=== PATIENT | male | born 2000 | race Caucasian/White ===

== ENCOUNTER 2019-01-25 13:05 | Day surgery (SDC) | payer OTHER ==
[~2019-01-25 13:05] MED LIST: CEFAZOLIN SODIUM 2 GM in DEXTROSE 5%-WATER 100 ML IV PRN; DEXAMETHASONE SOD PHOSPHATE INJ 4 MG/1 ML VIAL ONE; KETOROLAC TROMETHAMINE 60 MG/2 ML SDV ONE; LIDOCAINE 2% INJ-PF (20 MG/ML) 2 ML AMPUL ONE; METOCLOPRAMIDE HCL INJ/PF 10 MG/2 ML SDV ONE; ONDANSETRON HCL INJ/PF 4 MG/2 ML SDV ONE; SUCCINYLCHOLINE CHLORIDE INJ 200 MG/10 ML VIAL ONE
[2019-01-25] MEDS ORDERED: ONDANSETRON HCL INJ/PF 4 MG/2 ML SDV ONE (13:46)
[2019-01-25] MEDS ORDERED: FENTANYL CITRATE INJ/PF 100 MCG/2 ML AMPUL ONE (13:46)
[2019-01-25] MEDS ORDERED: DEXAMETHASONE SOD PHOSPHATE INJ 4 MG/1 ML VIAL ONE (13:46)
[2019-01-25] MEDS ORDERED: MORPHINE SULFATE 10 MG/ML INJ ONE (13:46)
[2019-01-25] MEDS ORDERED: MIDAZOLAM 2 MG/2 ML INJ ONE ×2 (13:46→18:14)
[2019-01-25] MEDS ORDERED: PROPOFOL INJ 200 MG/20 ML VIAL IV ONE ×2 (13:47→18:14)
[2019-01-25] MEDS ORDERED: BUPIVACAINE HCL 0.25 % INJ/PF (2.5 MG/1 ML) 30 ML VIAL ONE (13:52)
[2019-01-25] MEDS ORDERED: CEFAZOLIN 1 GM/D5W RTU 1 GM/50 ML RTUPB IV ONE (14:09)
[2019-01-25] MEDS ORDERED: LIDOCAINE 2% INJ (20 MG/ML) 20 ML MDV ONE (16:25)
[2019-01-25] MEDS ORDERED: ROPIVACAINE HCL 0.5% INJ/PF (5 MG/1 ML) 30 ML SDV ONE (16:25)
[2019-01-25] MEDS ORDERED: LIDOCAINE 2%/EPINEPHRINE INJ 20 ML VIAL ONE (16:25)
[2019-01-25] MEDS ORDERED: DEXMEDETOMIDINE INJ 80 MCG/20 ML VIAL IV ONE (18:14)
[2019-01-25] MEDS ORDERED: FENTANYL CITRATE INJ/PF 250 MCG/5 ML AMPULE ONE (18:14)
[2019-01-25] MEDS ORDERED: FENTANYL CITRATE INJ/PF 100 MCG/2 ML AMPUL IV PRN ×3 (20:27)
[2019-01-25] MEDS ORDERED: DIPHENHYDRAMINE HCL 50 MG/ML VIAL IV PRN (20:27)
[2019-01-25] MEDS ORDERED: MEPERIDINE HCL/PF INJ 25 MG/1 ML DISP.SYRIN IV PRN (20:27)
[2019-01-25] MEDS ORDERED: ONDANSETRON HCL INJ/PF 4 MG/2 ML SDV IV PRN (20:27)
[2019-01-25] MEDS ORDERED: PROMETHAZINE HCL INJ 25 MG/1 ML VIAL IV PRN ×2 (20:27)
--- NOTE | 2019-01-25 21:05 | OPERATIVE REPORT E ---
Operative Report NAME: RACHEL FLORES : 2000 AGE: 18Y DATE OF SURGERY: 01/25/2019 PREOPERATIVE DIAGNOSIS: LEFT 3-PART INTRAARTICULAR DISTAL RADIUS FRACTURE. POSTOPERATIVE DIAGNOSIS: LEFT 3-PART INTRAARTICULAR DISTAL RADIUS FRACTURE. OPERATIONS: 1. Open reduction internal fixation, left 3-part intraarticular distal radius fracture. 2. Brachial radialis tendon lengthening. SURGEON: GOGO MERAZ M.D. ANESTHESIA: General. ESTIMATED BLOOD LOSS: Minimal. COMPLICATIONS: None. IMPLANTS: Arthrex distal radius set. INDICATIONS FOR PROCEDURE: The patient is a 18-year-old young man who sustained a fall while skateboarding, resulting in a comminuted intraarticular fracture of the left distal radius. PROCEDURE: Following induction of general anesthetic and administration of antibiotics, patient was positioned supine on the operating room table. Bony prominences were padded. Tourniquet was placed on proximal left arm but not inflated. Left upper extremity sterilely prepped and draped in standard fashion. The arm was exsanguinated and tourniquet inflated to 100 mmHg. Extended FCR approach to distal radius was performed sharply through skin. Blunt dissection of subcutaneous tissue. Care was taken to identify and protect the radial artery. The FCR tendon sheath was then opened volarly and dorsally. Space of Parona opened bluntly. Pronator quadratus taken off the radius in an L-shaped flap. Fracture lines were identified and teased back into position. Clamps were placed, compressing the fracture lines. In particular, the most ulnar corner was clamped and reduced anatomically. Plate was applied volarly through its gliding hole. Position was checked through image intensification. Multiple unicortical locking screws were placed distally. Position was checked under image intensification. Two additional locking screws were placed in the shaft. Image intensification was brought in, which demonstrated anatomic reduction of the fracture and correct placement of implants. The wound was irrigated. The brachial radialis, which had been lengthened to reduce the radial styloid fragment, was repaired side to side in its lengthened position. The pronator quadratus was repaired back to itself using 2-0 Vicryl suture. Subcutaneous tissue was closed with 2-0 Vicryl and the skin was reapproximated with Monocryl suture. Then 0.25% Marcaine was injected for postoperative analgesia and a bulky dressing and volar splint were applied. The patient tolerated the procedure well, without complication, and was brought to the recovery room in stable condition. DICTATING PHYSICIAN: GOGO MERAZ M.D. [id number] Y#: [id number] 2041 ID: [id number] JOB#: [id number] ACCT: [id number] cc:GOGO MERAZ M.D. > MTDD
[2019-01-25 23:45] VITALS: BP 131/63
--- NOTE | 2019-01-26 10:47 | RADIOLOGY REPORT (SQ) ---
EXAM DESCRIPTION: WRIST LEFT 3 VIEWS; NO CHG FLUORO COMPLETED DATE/TIME: 01/25/2019 8:58 pm REASON FOR STUDY: ORIF LEFT WRIST S52.572A OTH INTARTIC FRACTURE OF LOWER END OF LEFT RADIUS, S52. 612A DISP FX OF LEFT ULNA STYLOID PROCESS, INIT FOR CLOS COMPARISON: None. FLUOROSCOPY TIME: 38 seconds. 3 images saved to PACS. TECHNIQUE: Intra-operative images acquired during surgical procedure to evaluate progress. NUMBER OF IMAGES: 3 images. LIMITATIONS: None. FINDINGS: Images acquired during hardware placement in the distal radius. IMPRESSION: IMAGE(S) OBTAINED DURING PROCEDURE. COMMENT: Quality ID 145: Final reports for procedures using fluoroscopy that document radiation exp osure indices, or exposure time and number of fluorographic images (if radiation exposure indices are not available) Please consult full operative report of the attending physician for description of the procedure. TECHNICAL DOCUMENTATION: JOB ID: [id number] [employer]- All Rights Reserved Reading location - IP/workstation name: [email or web address]
--- NOTE | 2019-01-26 10:47 | RADIOLOGY REPORT (SQ) ---
EXAM DESCRIPTION: WRIST LEFT 3 VIEWS; NO CHG FLUORO COMPLETED DATE/TIME: 01/25/2019 8:58 pm REASON FOR STUDY: ORIF LEFT WRIST S52.572A OTH INTARTIC FRACTURE OF LOWER END OF LEFT RADIUS, S52. 612A DISP FX OF LEFT ULNA STYLOID PROCESS, INIT FOR CLOS COMPARISON: None. FLUOROSCOPY TIME: 38 seconds. 3 images saved to PACS. TECHNIQUE: Intra-operative images acquired during surgical procedure to evaluate progress. NUMBER OF IMAGES: 3 images. LIMITATIONS: None. FINDINGS: Images acquired during hardware placement in the distal radius. IMPRESSION: IMAGE(S) OBTAINED DURING PROCEDURE. COMMENT: Quality ID 145: Final reports for procedures using fluoroscopy that document radiation exp osure indices, or exposure time and number of fluorographic images (if radiation exposure indices are not available) Please consult full operative report of the attending physician for description of the procedure. TECHNICAL DOCUMENTATION: JOB ID: [id number] [employer]- All Rights Reserved Reading location - IP/workstation name: [email or web address]
== END 2019-01-25 23:18 | disposition home or self-care (01) ==
LOC: OROUT 13:05
PROVIDERS: ATTEND Orthopaedic Surgery
DX: S52.572A Other intraarticular fracture of lower end of left radius, initial encounter for closed fracture (principal); S52.612A Displaced fracture of left ulna styloid process, initial encounter for closed fracture; V00.131A Fall from skateboard, initial encounter
CPT/HCPCS: 73110; 01830; 25609; 25280; J2795; J2250; J3490 ×3; J0690 ×2; J1100; J1885; J3010; J2765; J0330; J2405; J7060; J2704; J2270